=== PATIENT | female | born 1985 | race Caucasian/White ===

== ENCOUNTER 2017-03-16 19:11 | Emergency (ER) | payer BC ==
[2017-03-16] MEDS ORDERED: diphenhydrAMINE 50 MG/ML SDV IVPUSH ONE (19:14)
[2017-03-16] MEDS ORDERED: EPINEPHrine 1:1000 1 MG/ML SDV IM ONE (19:14)
[2017-03-16] MEDS ORDERED: methylPREDNISolone Sodium Succinate 125 MG/2 ML SDV IVPUSH ONE (19:14)
[2017-03-16] MEDS ORDERED: Sodium Chloride 0.9% 10 ML Syringe FLUSH PRN (19:15)
[2017-03-16] MEDS ORDERED: Racepinephrine 2.25% 0.5 ML Neb Soln NEB ONE (19:16)
[2017-03-16] MEDS ORDERED: Racepinephrine 2.25% 0.5 ML Neb Soln ONE (19:17)
[2017-03-16] MEDS ORDERED: LORazepam 2 MG/ML MDV IVPUSH ONE (19:27)
--- NOTE | 2017-03-16 22:31 | EDM.PDOC ---
ED HPI Allergic Reaction - General Chief Complaint: Allergic Reaction Stated Complaint: DIFFICULTY BREATHING Time Seen by Provider: 03/16/17 19:13 Source: Reports: Patient History Limitations: Reports: Physical impairment, Respiratory distress - History of Present Illness INITIAL COMMENTS - FREE TEXT/NARRATIVE: This patient presents with there respiratory distress which started shortly prior to arrival. Earlier in the day she felt some burning in her chest in the area of the trachea and thought that maybe she was coming down with the flu. She describes the burning as if there was a fire in her chest. She coughed a little bit but then felt her throat tightening up. This got worse and worse until finally she was unable to breathe. I believe she arrived by private vehicle with family members. She denies any flu symptoms such as fever chills nausea or vomiting. She denies any body aches. She does know if anything that might have caused an allergic reaction. Nothing like this has ever happened before. 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 ED EXAM GENERAL NO PERIP PULSE - Physical Exam Exam: See Below Exam Limited By: No limitations General Appearance: alert, WD/WN, severe distress (Severe respiratory distress with obvious stridor) Eye Exam: bilateral eye: normal inspection Throat/Mouth: Normal inspection (There is no edema of the oropharyngeal tissues. ) Head: atraumatic Neck: non-tender, other (There is a distinct very tight stridor in the area of the larynx.) Respiratory/Chest: respiratory distress, other (Lungs were generally clear to auscultation but there are some transmitted sounds from the stridor) Cardiovascular: regular rate, rhythm GI/Abdominal: non tender Back Exam: normal inspection Extremities: normal inspection Neurological: alert Psychiatric: normal affect Skin Exam: Warm, Dry, Intact, No rash Lymphatic: no adenopathy Course - Vital Signs Last Recorded V/S: Last Vital Signs Temp 36.4 C 03/16/17 19:16 Pulse 90 03/16/17 22:04 Resp 15 03/16/17 22:04 BP 101/73 03/16/17 22:04 Pulse Ox 97 03/16/17 22:04 - Orders/Labs/Meds Orders: Active Orders 24 hr Category Date Time Status RT Aerosol Therapy [RC] ASDIRECTED Care 03/16/17 19:17 Active Chest 2V [CR] Urgent Exams 03/16/17 20:09 Taken Neck Soft Tissue [CR] Stat Exams 03/16/17 20:09 Taken Sodium Chloride 0.9% [Saline Flush] Med 03/16/17 19:15 Active 10 ml FLUSH ASDIRECTED PRN Saline Lock Insert [OM.PC] Urgent Oth 03/16/17 19:15 Ordered Medication Orders Sodium Chloride (Saline Flush) 10 ml FLUSH ASDIRECTED PRN PRN Reason: Keep Vein Open Last Admin: 03/16/17 19:23 Dose: 10 ml Labs: Laboratory Tests 03/16/17 03/16/17 Range/Units 20:15 20:15 WBC 20.8 H (4.5-11.0) K/uL RBC 4.52 (3.30-5.50) M/uL Hgb 13.3 (12.0-15.0) g/dL Hct 40.4 (36.0-48.0) % MCV 89 (80-98) fL MCH 29 (27-31) pg MCHC 33 (32-36) % Plt Count 358 (150-400) K/uL Neut % (Auto) 83 H (36-66) % Lymph % (Auto) 11 L (24-44) % [place] % (Auto) 5 (2-6) % Eos % (Auto) 1 L (2-4) % Baso % (Auto) 0 (0-1) % Sodium 143 (140-148) mmol/L Potassium 3.1 L (3.6-5.2) mmol/L Chloride 106 (100-108) mmol/L Carbon Dioxide 26 (21-32) mmol/L Anion Gap 14.1 H (5.0-14.0) mmol/L BUN 10 (7-18) mg/dL Creatinine 0.9 (0.6-1.0) mg/dL Est Cr Clr Drug Dosing 74.23 mL/min Estimated GFR (MDRD) > 60 (>60) Glucose 194 H (74-106) mg/dL Calcium 8.2 L (8.5-10.1) mg/dL Total Bilirubin 0.2 (0.2-1.0) mg/dL AST 10 L (15-37) U/L ALT 18 (12-78) U/L Alkaline Phosphatase 66 (46-116) U/L Total Protein 7.0 (6.4-8.2) g/dL Albumin 3.7 (3.4-5.0) g/dL Globulin 3.3 (2.3-3.5) g/dL Albumin/Globulin Ratio 1.1 L (1.2-2.2) Meds: Medications Generic Name Dose Route Start Last Admin Trade Name Sia PRN Reason Stop Dose Admin Sodium Chloride 10 ml 03/16/17 19:15 03/16/17 19:23 Saline Flush FLUSH 10 ml ASDIRECTED PRN Administration Keep Vein Open Discontinued Medications Generic Name Dose Route Start Last Admin Trade Name Sia PRN Reason Stop Dose Admin Diphenhydramine HCl 50 mg 03/16/17 19:14 03/16/17 19:21 Benadryl IVPUSH 03/16/17 19:15 50 mg ONETIME ONE Administration Epinephrine HCl 0.3 mg 03/16/17 19:14 03/16/17 19:20 Adrenalin 1:1000 IM 03/16/17 19:15 0.3 mg ONETIME ONE Administration Lorazepam 1 mg 03/16/17 19:27 03/16/17 19:41 Ativan IVPUSH 03/16/17 19:28 1 mg ONETIME ONE Administration Methylprednisolone Sodium Succinate 125 mg 03/16/17 19:14 03/16/17 19:22 Solu-Medrol IVPUSH 03/16/17 19:15 125 mg ONETIME ONE Administration Racepinephrine 0.5 ml 03/16/17 19:16 03/16/17 19:27 S-2 2.25% NEB 03/16/17 19:17 0.5 ml ONETIME ONE Administration Racepinephrine Confirm 03/16/17 19:17 03/16/17 19:27 S-2 2.25% Administered 03/16/17 19:18 Not Given Dose 0.5 ml .ROUTE .[facility] - Re-Assessments/Exams Free Text/Narrative Re-Assessment/Exam: 03/16/17 22:53 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 She received epinephrine 0.3 mg IM. An IV was started and she received Solu-Medrol 125 mg IM and Benadryl 50 mg IM. A racemic epinephrine nebulizer treatment was also given. The patient began to get some relief within a few minutes. She was rechecked in the stridor had cleared up. At one point she seemed overly anxious she was given Ativan 1 mg IM and that helped. At one point after the epinephrine and warm off her blood pressure was noted to be low however that was with a large adult cuff. The cuff was replaced with normal cuff for this patient and her blood pressure systolic was 101. She was reexamined. Her voice is normal there is no stridor and her lungs are clear to auscultation. Her care was discussed the fact that most likely it's upper respiratory viral infection but an allergic reaction also a possibility and so she will be covered for both legs. We did discuss doing an influenza test however she didn' t want that done. I don't think there is any need to put this lady on any antiviral medications without any other symptoms. An oral antibiotic as a precautionary measure. A weeks worth of prednisone. She'll also take Benadryl as needed and she'll receive a epinephrine auto injector and that was also discussed. Departure - Departure Time of Disposition: 22:24 Disposition: Home, Self-Care 01 Condition: fair Clinical Impression: Respiratory distress, acute, Laryngospasm, Tracheitis Referrals: PCP,None [Primary Care Provider] - Forms: ED Department Discharge Additional Instructions: The cause of severe respiratory distress was a spasm of the area around the larynx. This most likely is from a viral tracheitis or viral infection in the windpipe. This happens with viral upper respiratory infections or even the flu. Take the azithromycin (Z-Lauro) as directed. This is in case there is a bacterial component to the infection. Take prednisone 10 mg 4 tablets daily for 5 days. This is to reduce inflammation and also will help prevent an allergic reaction Take Benadryl 50 mg 4 times daily. This is used for allergies. It will make you sleepy and impair driving. This can be considered optional Get the auto injector. You should open it and familiarize yourself with it. If you have another episode like this it can be life saving so you should keep it handy at all times. If you do have to use the autoinjector then it's mandatory that you be seen in an emergency department immediately. - My Orders Last 24 Hours: My Active Orders 03/16/17 19:15 Sodium Chloride 0.9% [Saline Flush] 10 ml FLUSH ASDIRECTED PRN Saline Lock Insert [OM.PC] Urgent 03/16/17 19:17 RT Aerosol Therapy [RC] ASDIRECTED 03/16/17 20:09 Chest 2V [CR] Urgent Neck Soft Tissue [CR] Stat - Assessment/Plan Last 24 Hours: My Active Orders 03/16/17 19:15 Sodium Chloride 0.9% [Saline Flush] 10 ml FLUSH ASDIRECTED PRN Saline Lock Insert [OM.PC] Urgent 03/16/17 19:17 RT Aerosol Therapy [RC] ASDIRECTED 03/16/17 20:09 Chest 2V [CR] Urgent Neck Soft Tissue [CR] Stat
[2017-03-16 23:21] VITALS: BP 113/72
--- NOTE | 2017-03-18 10:24 | CR ---
Chest 2V FINDINGS: The heart and vascular structures are normal in appearance. No infiltrates or effusions ar e demonstrated. The skeletal structures are unremarkable. IMPRESSION: Negative exam.
--- NOTE | 2017-03-18 10:25 | CR ---
Soft tissue neck The airway is widely patent. The epiglottis is not thickened. The retropharyngeal soft tissues are n ot thickened. There is no radiopaque foreign body. Impression: 1. Negative exam.
== END 2017-03-16 23:20 | disposition home or self-care (01) ==
LOC: JP.ED 19:11
DX: R06.00 Dyspnea, unspecified (principal); J38.5 Laryngeal spasm; J04.10 Acute tracheitis without obstruction; F17.210 Nicotine dependence, cigarettes, uncomplicated; Z90.49 Acquired absence of other specified parts of digestive tract; Z88.1 Allergy status to other antibiotic agents; Z88.8 Allergy status to other drugs, medicaments and biological substances
CPT/HCPCS: 36415; 70360; 71020; 80053; 85025; 94640; 96372; 96374; 96375; 99285; J0171; J1200; J2060; J2930; J7050

== ENCOUNTER 2017-03-18 10:50 | Emergency (ER) | payer BC, MEDICAID ==
--- NOTE | 2017-03-18 12:00 | EDM.PDOC ---
ED HPI GENERAL MEDICAL PROBLEM - General Chief Complaint: General Stated Complaint: PAIN IN CHEST AND BACK, BURNING Time Seen by Provider: 03/18/17 11:47 Source of Information: Reports: Patient History Limitations: Reports: No limitations - History of Present Illness INITIAL COMMENTS - FREE TEXT/NARRATIVE: pt arrived complaining of pain in the epigastric area and flank area. She states this comes and goes and is very sharp at times. Onset: gradual Duration: Hour(s):, Waxing/waning Location: Reports: chest, abdomen Associated Symptoms: Reports: other (pt feels like she can,t concentrate. 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: - Infectious Disease History Infectious Disease History: Reports: Chicken pox - Past Surgical History GI Surgical History: Reports: Appendectomy Social & Family History - Tobacco Use Smoking Status *Q: Current Every Day Smoker Years of Tobacco use: 10 Packs/Tins Daily: 0.2 - Caffeine Use Caffeine Use: Reports: Coffee, Soda - Recreational Drug Use Recreational Drug Use: No ED ROS GENERAL - Review of Systems Review Of Systems: See Below Constitutional: Reports: chills, malaise, weakness, decreased appetite HEENT: Reports: No symptoms, Other ( light sob) Respiratory: Reports: No Symptoms Cardiovascular: Reports: No symptoms Endocrine: Reports: no symptoms GI/Abdominal: Reports: Abdominal pain, Other ( She is now pointing to pain in the rt upper abdomn and has slight tenderness when she is pushed on in that area. ) : Reports: flank pain, other ( left side. ) Musculoskeletal: Reports: no symptoms Skin: Reports: no symptoms Neurological: Reports: No Symptoms Psychiatric: Reports: Anxiety ED EXAM, GENERAL - Physical Exam Exam: See Below Free Text/Narrative:: Pt arrived with pain in her upper abdoman going to her shoulder area. Exam Limited By: No limitations General Appearance: alert, anxious Ears: normal TMs Nose: normal inspection Throat/Mouth: Normal inspection Head: atraumatic Neck: normal inspection Respiratory/Chest: no respiratory distress Cardiovascular: regular rate, rhythm GI/Abdominal: soft, non tender Rectal (Female) Exam: Deferred Back Exam: normal inspection Extremities: normal inspection Neurological: alert, oriented, normal cognition Course - Vital Signs Last Recorded V/S: Last Vital Signs Temp 36.2 C 03/18/17 20:11 Pulse 73 03/18/17 20:11 Resp 16 03/18/17 20:11 BP 121/87 03/18/17 20:11 Pulse Ox 97 03/18/17 20:11 - Orders/Labs/Meds Labs: Laboratory Tests 03/18/17 03/18/17 03/18/17 Range/Units 12:01 12:13 12:13 WBC 11.0 (4.5-11.0) K/uL RBC 4.56 (3.30-5.50) M/uL Hgb 13.4 (12.0-15.0) g/dL Hct 41.2 (36.0-48.0) % MCV 90 (80-98) fL MCH 29 (27-31) pg MCHC 33 (32-36) % Plt Count 388 (150-400) K/uL Neut % (Auto) 56 (36-66) % Lymph % (Auto) 33 (24-44) % [place] % (Auto) 9 H (2-6) % Eos % (Auto) 1 L (2-4) % Baso % (Auto) 0 (0-1) % Sodium 141 (140-148) mmol/L Potassium 3.4 L (3.6-5.2) mmol/L Chloride 106 (100-108) mmol/L Carbon Dioxide 26 (21-32) mmol/L Anion Gap 12.4 (5.0-14.0) mmol/L BUN 10 (7-18) mg/dL Creatinine 0.8 (0.6-1.0) mg/dL Est Cr Clr Drug Dosing TNP Estimated GFR (MDRD) > 60 (>60) Glucose 88 (74-106) mg/dL Calcium 8.5 (8.5-10.1) mg/dL Total Bilirubin 0.3 (0.2-1.0) mg/dL AST 12 L (15-37) U/L ALT 21 (12-78) U/L Alkaline Phosphatase 55 (46-116) U/L Troponin I (0.000-0.056) ng/mL C-Reactive Protein 0.14 (0.0-0.3) mg/dL Total Protein 7.3 (6.4-8.2) g/dL Albumin 4.0 (3.4-5.0) g/dL Globulin 3.3 (2.3-3.5) g/dL Albumin/Globulin Ratio 1.2 (1.2-2.2) Lipase (73-393) U/L Urine Color Yellow Urine Appearance Cloudy Urine pH 5.0 (4.5-8.0) Ur Specific [place] 1.030 (1.008-1.030) Urine Protein Negative (NEGATIVE) mg/dL Urine Glucose (UA) Normal (NEGATIVE) mg/dL Urine Ketones Negative (NEGATIVE) mg/dL Urine Occult Blood Negative (NEGATIVE) Urine Nitrite Negative (NEGATIVE) Urine Bilirubin Negative (NEGATIVE) Urine Urobilinogen Normal (NORMAL) mg/dL Ur Leukocyte Esterase Negative (NEGATIVE) Urine RBC 0-5 (0-5) Urine WBC 5-10 H (0-5) Ur Epithelial Cells Many Amorphous Sediment Not seen Urine Bacteria Moderate Urine Mucus Many 03/18/17 03/18/17 Range/Units 12:13 17:56 WBC (4.5-11.0) K/uL RBC (3.30-5.50) M/uL Hgb (12.0-15.0) g/dL Hct (36.0-48.0) % MCV (80-98) fL MCH (27-31) pg MCHC (32-36) % Plt Count (150-400) K/uL Neut % (Auto) (36-66) % Lymph % (Auto) (24-44) % [place] % (Auto) (2-6) % Eos % (Auto) (2-4) % Baso % (Auto) (0-1) % Sodium (140-148) mmol/L Potassium (3.6-5.2) mmol/L Chloride (100-108) mmol/L Carbon Dioxide (21-32) mmol/L Anion Gap (5.0-14.0) mmol/L BUN (7-18) mg/dL Creatinine (0.6-1.0) mg/dL Est Cr Clr Drug Dosing Estimated GFR (MDRD) (>60) Glucose (74-106) mg/dL Calcium (8.5-10.1) mg/dL Total Bilirubin (0.2-1.0) mg/dL AST (15-37) U/L ALT (12-78) U/L Alkaline Phosphatase (46-116) U/L Troponin I < 0.017 (0.000-0.056) ng/mL C-Reactive Protein (0.0-0.3) mg/dL Total Protein (6.4-8.2) g/dL Albumin (3.4-5.0) g/dL Globulin (2.3-3.5) g/dL Albumin/Globulin Ratio (1.2-2.2) Lipase 89 (73-393) U/L Urine Color Urine Appearance Urine pH (4.5-8.0) Ur Specific [place] (1.008-1.030) Urine Protein (NEGATIVE) mg/dL Urine Glucose (UA) (NEGATIVE) mg/dL Urine Ketones (NEGATIVE) mg/dL Urine Occult Blood (NEGATIVE) Urine Nitrite (NEGATIVE) Urine Bilirubin (NEGATIVE) Urine Urobilinogen (NORMAL) mg/dL Ur Leukocyte Esterase (NEGATIVE) Urine RBC (0-5) Urine WBC (0-5) Ur Epithelial Cells Amorphous Sediment Urine Bacteria Urine Mucus Meds: Medications Discontinued Medications Generic Name Dose Route Start Last Admin Trade Name Freq PRN Reason Stop Dose Admin Al Hydroxide/Mg Hydroxide 15 0 ml 03/18/17 16:51 03/18/17 16:57 ml/ Lidocaine HCl 15 ml PO 03/18/17 16:52 15 ml ONETIME ONE Administration Hydromorphone HCl 0.5 mg 03/18/17 12:05 03/18/17 12:19 Dilaudid IVPUSH 03/18/17 12:06 0.5 mg ONETIME ONE Administration Hydromorphone HCl 0.5 mg 03/18/17 13:12 03/18/17 13:22 Dilaudid IVPUSH 03/18/17 13:13 0.5 mg ONETIME ONE Administration Hydromorphone HCl 0.5 mg 03/18/17 14:52 03/18/17 15:02 Dilaudid IVPUSH 03/18/17 14:53 0.5 mg ONETIME ONE Administration Hydromorphone HCl 0.5 mg 03/18/17 16:12 03/18/17 16:17 Dilaudid IVPUSH 03/18/17 16:13 0.5 mg ONETIME ONE Administration Sodium Chloride 1,000 mls @ 400 mls/hr 03/18/17 12:15 03/18/17 12:20 Normal Saline IV 400 mls/hr ASDIRECTED [place] Administration Sodium Chloride 1,000 mls @ 500 mls/hr 03/18/17 15:00 03/18/17 15:02 Normal Saline IV 500 mls/hr ASDIRECTED [place] Administration Sodium Chloride 70 mls @ 3 mls/sec 03/18/17 15:25 03/18/17 15:36 Normal Saline IV 03/18/17 15:26 3 mls/sec ONETIME ONE Administration Iopamidol 100 ml 03/18/17 15:25 03/18/17 15:37 Isovue-300 (61%) IV 03/18/17 15:26 100 ml . DIRECTED PRN Administration RADIOLOGY EXAM Ketorolac Tromethamine 30 mg 03/18/17 17:33 03/18/17 17:39 Toradol IVPUSH 03/18/17 17:34 30 mg ONETIME ONE Administration Lorazepam 0.5 mg 03/18/17 18:08 03/18/17 18:21 Ativan IVPUSH 03/18/17 18:09 0.5 mg ONETIME ONE Administration Ondansetron HCl 4 mg 03/18/17 17:32 03/18/17 17:39 Zofran IVPUSH 03/18/17 17:33 4 mg ONETIME ONE Administration Pantoprazole Sodium 40 mg 03/18/17 18:07 03/18/17 18:22 Protonix Iv IVPUSH 03/18/17 18:08 40 mg ONETIME ONE Administration Sodium Chloride 10 ml 03/18/17 15:25 03/18/17 15:37 Saline Flush FLUSH 10 ml ONETIME PRN Administration PER RADIOLOGY PROTOCOL - Re-Assessments/Exams Free Text/Narrative Re-Assessment/Exam: 03/18/17 17:26 pt arrived with upper abdomnal pain extending into the chest. She was very anxious. She states she was not focusing normally at school. She stated that the pain came and went. . She felt flushed and very foggy headed. 03/18/17 17:28 05 09:09 pt had a cat scn of the abdoman which was neg. A us was done on the gb area and this was neg. She continued to have spasms of pain going accross the uppr abdoman. Departure - Departure Time of Disposition: 17:31 Disposition: Home, Self-Care 01 Condition: fair Clinical Impression: Abdominal pain Instructions: Abdominal Pain, Adult, [id number] Referrals: Molly Lyon MD [Primary Care Provider] - Forms: ED Department Discharge Additional Instructions: Use hydrocodone as needed for pain control, use Zofran as needed for nausea and vomiting symptoms, please followup with your primary care provider in the next one to 2 days
[2017-03-18] MEDS ORDERED: HYDROmorphone 0.5 MG/0.5 ML Syringe IVPUSH ONE ×4 (12:05→16:12)
[2017-03-18] MEDS ORDERED: Sodium Chloride 0.9% 1,000 ML IV SCH ×2 (12:15→15:00)
--- NOTE | 2017-03-18 13:00 | CR ---
Chest 2V FINDINGS: The heart and vascular structures are normal in appearance. No infiltrates or effusions ar e demonstrated. The skeletal structures are unremarkable. IMPRESSION: Negative exam.
--- NOTE | 2017-03-18 14:33 | US ---
Right upper quadrant ultrasound The liver is homogeneous. There is evidence of a cyst involving the anterior margin right lobe liver adjacent to the capsule measuring 5.2 x 1.1 x 1.9 cm. There is a nonmobile echogenic structure adhe rent to the gallbladder wall measuring 4 mm. The finding is most consistent with a polyp. There is n o pain elicited with palpation over the gallbladder. The common bile duct measures 3 mm. The visuali zed portions of the pancreas are unremarkable. The right kidney measures 9.5 cm in length. There is no hydronephrosis. The IVC is unremarkable. Impression: 1. Gallbladder polyp. No stones or evidence for inflammation. 2. Hepatic cyst.
[2017-03-18 15:08] VITALS: BP 121/87
[2017-03-18] MEDS ORDERED: Sodium Chloride 0.9% 10 ML Syringe FLUSH PRN (15:25)
[2017-03-18] MEDS ORDERED: Iopamidol 612 MG/ML 100 ML Bottle IV PRN (15:25)
[2017-03-18] MEDS ORDERED: Alum Hydrox/Mag Hydrox/Simeth 15 ML, Lidocaine 2% 15 ML PO ONE ×2 (16:51)
[2017-03-18] MEDS ORDERED: Ondansetron 4 MG/2 ML SDV IVPUSH ONE (17:32)
[2017-03-18] MEDS ORDERED: Ketorolac 30 MG/ML SDV IVPUSH ONE (17:33)
[2017-03-18] MEDS ORDERED: Pantoprazole 40 MG Vial IVPUSH ONE (18:07)
[2017-03-18] MEDS ORDERED: LORazepam 2 MG/ML MDV IVPUSH ONE (18:08)
--- NOTE | 2017-03-18 19:36 | EDM.PDOC ---
ED HPI GI/ABDOMINAL - General Chief Complaint: General Stated Complaint: PAIN IN CHEST AND BACK, BURNING Time Seen by Provider: 03/18/17 18:15 Source: Reports: Patient, Old records, RN notes reviewed History Limitations: Reports: No limitations - History of Present Illness INITIAL COMMENTS - FREE TEXT/NARRATIVE: 31-year-old female presented earlier today with complaint of abdominal pain I took over care from Dr. Brooks, at this time she is pain-free suspicious this may be related to come to azithromycin and prednisone please see Dr. Brooks's note for complete details - Related Data Allergies/ADRs: Allergies Allergy/AdvReac Type Severity Reaction Status Date / Time prochlorperazine Allergy Seizure Verified 03/16/17 19:15 [From Compazine] prochlorperazine edisylate Allergy Seizure Verified 03/16/17 19:15 [From Compazine] prochlorperazine maleate Allergy Seizure Verified 03/16/17 19:15 [From Compazine] tetracycline Allergy Cannot Verified 03/16/17 19:15 Remember meperidine HCl [From Demerol] AdvReac Vomiting Verified 03/16/17 19:15 Home Meds: Home Meds NK [No Known Home Meds] 03/16/17 [History] Past Medical History [employer] History: Reports: - Infectious Disease History Infectious Disease History: Reports: Chicken pox - Past Surgical History GI Surgical History: Reports: Appendectomy Social & Family History - Tobacco Use Smoking Status *Q: Current Every Day Smoker Years of Tobacco use: 10 Packs/Tins Daily: 0.2 - Caffeine Use Caffeine Use: Reports: Coffee, Soda - Recreational Drug Use Recreational Drug Use: No ED ROS GENERAL - Review of Systems Review Of Systems: See Below Constitutional: Reports: no symptoms Respiratory: Reports: No Symptoms Cardiovascular: Reports: No symptoms GI/Abdominal: Reports: No symptoms ED EXAM, GI/ABD - Physical Exam Exam: See Below Exam Limited By: No limitations General Appearance: alert, WD/WN, no apparent distress Respiratory/Chest: no respiratory distress GI/Abdominal: normal bowel sounds, soft, non tender, no distention Course - Vital Signs Last Recorded V/S: Last Vital Signs Temp 97.2 F 03/18/17 11:04 Pulse 73 03/18/17 15:03 Resp 16 03/18/17 15:03 BP 121/87 03/18/17 15:03 Pulse Ox 97 03/18/17 15:03 - Orders/Labs/Meds Orders: Active Orders 24 hr Category Date Time Status EKG Documentation Completion [RC] ASDIRECTED Care 03/18/17 12:04 Active Abdomen Pelvis w Cont [CT] Stat Exams 03/18/17 14:51 Taken CULTURE URINE [RM] Stat Lab 03/18/17 12:59 Received Sodium Chloride 0.9% [Normal Saline] 1,000 ml Med 03/18/17 12:15 Active IV ASDIRECTED Sodium Chloride 0.9% [Normal Saline] 1,000 ml Med 03/18/17 15:00 Active IV ASDIRECTED Sodium Chloride 0.9% [Saline Flush] Med 03/18/17 15:25 Active 10 ml FLUSH ONETIME PRN EKG 12 Lead [EK] Routine Ther 03/18/17 12:04 Ordered Medication Orders Sodium Chloride (Normal Saline) 1,000 mls @ 400 mls/hr IV ASDIRECTED TAQUERIA Last Admin: 03/18/17 12:20 Dose: 400 mls/hr Sodium Chloride (Normal Saline) 1,000 mls @ 500 mls/hr IV ASDIRECTED [place]IA Last Admin: 03/18/17 15:02 Dose: 500 mls/hr Sodium Chloride (Saline Flush) 10 ml FLUSH ONETIME PRN PRN Reason: PER RADIOLOGY PROTOCOL Last Admin: 03/18/17 15:37 Dose: 10 ml Labs: Laboratory Tests 03/18/17 03/18/17 03/18/17 Range/Units 12:01 12:13 12:13 WBC 11.0 (4.5-11.0) K/uL RBC 4.56 (3.30-5.50) M/uL Hgb 13.4 (12.0-15.0) g/dL Hct 41.2 (36.0-48.0) % MCV 90 (80-98) fL MCH 29 (27-31) pg MCHC 33 (32-36) % Plt Count 388 (150-400) K/uL Neut % (Auto) 56 (36-66) % Lymph % (Auto) 33 (24-44) % Pender % (Auto) 9 H (2-6) % Eos % (Auto) 1 L (2-4) % Baso % (Auto) 0 (0-1) % Sodium 141 (140-148) mmol/L Potassium 3.4 L (3.6-5.2) mmol/L Chloride 106 (100-108) mmol/L Carbon Dioxide 26 (21-32) mmol/L Anion Gap 12.4 (5.0-14.0) mmol/L BUN 10 (7-18) mg/dL Creatinine 0.8 (0.6-1.0) mg/dL Est Cr Clr Drug Dosing TNP Estimated GFR (MDRD) > 60 (>60) Glucose 88 (74-106) mg/dL Calcium 8.5 (8.5-10.1) mg/dL Total Bilirubin 0.3 (0.2-1.0) mg/dL AST 12 L (15-37) U/L ALT 21 (12-78) U/L Alkaline Phosphatase 55 (46-116) U/L Troponin I (0.000-0.056) ng/mL C-Reactive Protein 0.14 (0.0-0.3) mg/dL Total Protein 7.3 (6.4-8.2) g/dL Albumin 4.0 (3.4-5.0) g/dL Globulin 3.3 (2.3-3.5) g/dL Albumin/Globulin Ratio 1.2 (1.2-2.2) Lipase (73-393) U/L Urine Color Yellow Urine Appearance Cloudy Urine pH 5.0 (4.5-8.0) Ur Specific Bowler 1.030 (1.008-1.030) Urine Protein Negative (NEGATIVE) mg/dL Urine Glucose (UA) Normal (NEGATIVE) mg/dL Urine Ketones Negative (NEGATIVE) mg/dL Urine Occult Blood Negative (NEGATIVE) Urine Nitrite Negative (NEGATIVE) Urine Bilirubin Negative (NEGATIVE) Urine Urobilinogen Normal (NORMAL) mg/dL Ur Leukocyte Esterase Negative (NEGATIVE) Urine RBC 0-5 (0-5) Urine WBC 5-10 H (0-5) Ur Epithelial Cells Many Amorphous Sediment Not seen Urine Bacteria Moderate Urine Mucus Many 03/18/17 03/18/17 Range/Units 12:13 17:56 WBC (4.5-11.0) K/uL RBC (3.30-5.50) M/uL Hgb (12.0-15.0) g/dL Hct (36.0-48.0) % MCV (80-98) fL MCH (27-31) pg MCHC (32-36) % Plt Count (150-400) K/uL Neut % (Auto) (36-66) % Lymph % (Auto) (24-44) % Pender % (Auto) (2-6) % Eos % (Auto) (2-4) % Baso % (Auto) (0-1) % Sodium (140-148) mmol/L Potassium (3.6-5.2) mmol/L Chloride (100-108) mmol/L Carbon Dioxide (21-32) mmol/L Anion Gap (5.0-14.0) mmol/L BUN (7-18) mg/dL Creatinine (0.6-1.0) mg/dL Est Cr Clr Drug Dosing Estimated GFR (MDRD) (>60) Glucose (74-106) mg/dL Calcium (8.5-10.1) mg/dL Total Bilirubin (0.2-1.0) mg/dL AST (15-37) U/L ALT (12-78) U/L Alkaline Phosphatase (46-116) U/L Troponin I < 0.017 (0.000-0.056) ng/mL C-Reactive Protein (0.0-0.3) mg/dL Total Protein (6.4-8.2) g/dL Albumin (3.4-5.0) g/dL Globulin (2.3-3.5) g/dL Albumin/Globulin Ratio (1.2-2.2) Lipase 89 (73-393) U/L Urine Color Urine Appearance Urine pH (4.5-8.0) Ur Specific Bowler (1.008-1.030) Urine Protein (NEGATIVE) mg/dL Urine Glucose (UA) (NEGATIVE) mg/dL Urine Ketones (NEGATIVE) mg/dL Urine Occult Blood (NEGATIVE) Urine Nitrite (NEGATIVE) Urine Bilirubin (NEGATIVE) Urine Urobilinogen (NORMAL) mg/dL Ur Leukocyte Esterase (NEGATIVE) Urine RBC (0-5) Urine WBC (0-5) Ur Epithelial Cells Amorphous Sediment Urine Bacteria Urine Mucus Meds: Medications Generic Name Dose Route Start Last Admin Trade Name Freq PRN Reason Stop Dose Admin Sodium Chloride 1,000 mls @ 400 mls/hr 03/18/17 12:15 03/18/17 12:20 Normal Saline IV 400 mls/hr ASDIRECTED [place]ERIA Administration Sodium Chloride 1,000 mls @ 500 mls/hr 03/18/17 15:00 03/18/17 15:02 Normal Saline IV 500 mls/hr ASDIRECTED [place]IA Administration Sodium Chloride 10 ml 03/18/17 15:25 03/18/17 15:37 Saline Flush FLUSH 10 ml ONETIME PRN Administration PER RADIOLOGY PROTOCOL Discontinued Medications Generic Name Dose Route Start Last Admin Trade Name Freq PRN Reason Stop Dose Admin Al Hydroxide/Mg Hydroxide 15 0 ml 03/18/17 16:51 03/18/17 16:57 ml/ Lidocaine HCl 15 ml PO 03/18/17 16:52 15 ml ONETIME ONE Administration Hydromorphone HCl 0.5 mg 03/18/17 12:05 03/18/17 12:19 Dilaudid IVPUSH 03/18/17 12:06 0.5 mg ONETIME ONE Administration Hydromorphone HCl 0.5 mg 03/18/17 13:12 03/18/17 13:22 Dilaudid IVPUSH 03/18/17 13:13 0.5 mg ONETIME ONE Administration Hydromorphone HCl 0.5 mg 03/18/17 14:52 03/18/17 15:02 Dilaudid IVPUSH 03/18/17 14:53 0.5 mg ONETIME ONE Administration Hydromorphone HCl 0.5 mg 03/18/17 16:12 03/18/17 16:17 Dilaudid IVPUSH 03/18/17 16:13 0.5 mg ONETIME ONE Administration Sodium Chloride 70 mls @ 3 mls/sec 03/18/17 15:25 03/18/17 15:36 Normal Saline IV 03/18/17 15:26 3 mls/sec ONETIME ONE Administration Iopamidol 100 ml 03/18/17 15:25 03/18/17 15:37 Isovue-300 (61%) IV 03/18/17 15:26 100 ml . DIRECTED PRN Administration RADIOLOGY EXAM Ketorolac Tromethamine 30 mg 03/18/17 17:33 03/18/17 17:39 Toradol IVPUSH 03/18/17 17:34 30 mg ONETIME ONE Administration Lorazepam 0.5 mg 03/18/17 18:08 03/18/17 18:21 Ativan IVPUSH 03/18/17 18:09 0.5 mg ONETIME ONE Administration Ondansetron HCl 4 mg 03/18/17 17:32 03/18/17 17:39 Zofran IVPUSH 03/18/17 17:33 4 mg ONETIME ONE Administration Pantoprazole Sodium 40 mg 03/18/17 18:07 03/18/17 18:22 Protonix Iv IVPUSH 03/18/17 18:08 40 mg ONETIME ONE Administration Departure - Departure Time of Disposition: 19:36 Disposition: Home, Self-Care 01 Condition: fair Clinical Impression: Abdominal pain Qualifiers: Abdominal location: upper abdomen, unspecified Qualified Code(s): R10.10 - Upper abdominal pain, unspecified Referrals: Molly Lyon MD [Primary Care Provider] - Forms: ED Department Discharge Additional Instructions: Use hydrocodone as needed for pain control, use Zofran as needed for nausea and vomiting symptoms, please followup with your primary care provider in the next one to 2 days - Assessment/Plan Plan: Assessment Acuity = acute Site and laterality = upper abdominal pain Etiology = unclear etiologies possibly related to medications of azithromycin and prednisone Manifestations = none Location of injury = home Lab values = please see Dr. Gibson shows note for details Plan She is pain-free at this time plan is to discharge home with pain medication and nausea medication follow up primary care in the next one to 2 days total of 10 Vicodin provided Patient was in agreement with the plan all questions were answered, they were instructed to return to the emergency department or call for worsening symptoms. This note was dictated using [employer] voice recognition software please call with any questions.
== END 2017-03-18 20:09 | disposition home or self-care (01) ==
LOC: JP.ED 10:50
DX: R10.10 Upper abdominal pain, unspecified (principal); F17.210 Nicotine dependence, cigarettes, uncomplicated; Z90.49 Acquired absence of other specified parts of digestive tract; Z88.1 Allergy status to other antibiotic agents; Z88.8 Allergy status to other drugs, medicaments and biological substances
CPT/HCPCS: 36415; 71020; 74177; 76705; 80053; 81001; 83690; 84484; 85025; 86140; 87086; 93005; 96361; 96374; 96375; 96376; 99285; A9270; C9113; J1170; J1885; J2060; J2405; J7030; J7040; J7050; Q9967; 99283